=== PATIENT | female | born 2005 | race Hispanic/Latino ===

== ENCOUNTER 2024-12-22 12:15 | Outpatient (CLI) | payer OTHER, SELFPAY ==
--- OUTSIDE RECORDS SUMMARY | 2024-01-16 05:30 | XMS_ITS | Continuity of Care Document ---
Author Organization [facility] Address [address] [place] [phone] Phone Care Team Providers Care Ferry Captain Name Role Phone Unavailable Unavailable Unavailable Allergies, Adverse Reactions, Alerts Substance Reaction Status Criticality pineapple Swelling Active No Information Procedures Procedure Date 1ST COMPRE PREV MED E/M NEW PT [...] DETECTED Final For additional information, please refer tohttp://education.The Fab Shoes/ faq/Trichomonastma(T his link is being provided for [...] LDL-C. Jeevan SS et al. DOC. 2013;310(19): 0924-1757 (http://education.Phanfare.MoBank/f aq/SPH055) CHOL/HDLC RATIO 2023 11:15:5 1 2.1 (calc) [...] to test SurePath(TM) specimens have beendetermined by [employer]. The modifications havenot been cleared or approved by the FDA. This assay hasbeen validated pursuant to the CLIA regulations and isused for clinical purposes. For additional information, please refer tohttps://MAR Systems /faq/WLU002(This link is being provided for information/educatio nal [...] suspected, a test for HCV RNA(test code 51748) is suggested. For additional information please refer tohttp://education.The Fab Shoes/ faq/ETS40p8(This link is being provided for informational/educat ional purposes only.) Panel Description: Hepatitis B Surface Antigen with Reflex Confirmation Final HEPATITIS B SURFACE ANTIGEN 2023 11:15:5 1 NON-REACTI VE NON-REACTI VE Final For additional information, please refer to http://Runfaces.DescribeMe/fa q/GFT976 (This link is being provided for informational/educat [...] this purpose. For additional information please refer tohttp://education.The Fab Shoes/ faq/ICH543(This link is being provided for informational/educat ional purposes only.) The performance of this assay has not been clinicallyvalidated in patients less than 2 years old. Advance Directives Directive Yes / No Effective Date File Name No Information Encounters Encounter Description Practice Location Reason(s) For Visit Diagnoses Date Provider Providers Copied on Encounter 1ST COMPRE PREV MED E/M NEW PT 18-39 [facility], [address], [place], [place], [id number] , [place] tel:[phone] [employer] [facility] (chief complaint) Body mass index (BMI) 20.0-20.9, [...] Information Payers Payer name Insurance type Covered constitution party ID Authoriza tion(s) No Information Social History [...] to establish care. 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 Patient Care Teams Name Effective Dates (start - stop) Status Members No Information
[2024-12-22 13:32] VITALS: BP 119/66; PULSE 92
[2024-12-22 13:46] VITALS: BP 118/70; PULSE 87
[2024-12-22 14:36] LABS: OBXCEM ROM Plus Negative (Negative)
== END 2024-12-22 13:55 | disposition home or self-care (01) ==
LOC: ANHOBOP 12:36 → ANHOBPP 12:37
PROVIDERS: Visit Provider Obstetrics & Gynecology
DX: O42.90 Premature rupture of membranes, unspecified as to length of time between rupture and onset of labor, unspecified weeks of gestation (principal)
CPT/HCPCS: 59025; 84112

== ENCOUNTER 2025-01-13 14:04 | Outpatient (CLI) | payer OTHER, SELFPAY ==
--- OUTSIDE RECORDS SUMMARY | 2024-01-16 05:30 | XMS_ITS | Continuity of Care Document ---
Author Organization [facility] Address [address] [place] [phone] Phone Care Team Providers Care Environmental Test Technician Name Role Phone Unavailable Unavailable Unavailable Allergies, Adverse Reactions, Alerts Substance Reaction Status Criticality pineapple Swelling Active No Information Procedures Procedure Date COMPRE PREV MED E/M NEW PT 18-39 Jan HEMOGLOBIN; GLYCOSYLATED (A1C) URINE TEST, BY VISUAL COLOR [employer] MPARISON METHODS Results Test Name Date and Time Measure Units Reference Range Abnormal Flag Status Comments Panel Description: Hemoglobi n A1c/Hemoglobin.total in Blood Final HBA1c 2023 11:15:5 1 5.3 % 3.5-5.7 Final Panel Description: Choriogon adotropin.beta subunit ( test) [Presence] in Urine Final - Urine 2023 11:15:5 1 Negative Negative Final Panel Description: CBC (H/H, RBC, Indices, WBC, Plt) (QH) Final WHITE BLOOD CELL COUNT 2023 11:15:5 1 6.0 Thousan d/uL 3.8-10.8 Final RED BLOOD CELL COUNT 2023 11:15:5 1 4.35 Million /uL 3.80-5.10 Final HEMOGLOBIN 2023 11:15:5 1 12.8 g/dL 11.7-15.5 Final HEMATOCRIT 2023 11:15:5 1 39.3 % 35.0-45.0 Final MCV 2023 11:15:5 1 90.3 fL 80.0-100.0 Final MCH 2023 11:15:5 1 29.4 pg 27.0-33.0 Final MCHC 2023 11:15:5 1 32.6 g/dL 32.0-36.0 Final For adults, a slight decrease in the calculated MCHCvalue (in the range of 30 to 32 g/dL) is most likelynot clinically significant; however, it should beinterpreted with caution in correlation with otherred cell parameters and the patient's clinicalcondition. RDW 2023 11:15:5 1 12.5 % 11.0-15.0 Final PLATELET COUNT 2023 11:15:5 1 326 Thousan d/uL 140-400 Final MPV 2023 11:15:5 1 10.4 fL 7.5-12.5 Final Panel Description: RPR DX Re flex to Titer and Confirmatory Testing Final RPR (DX) W/REFL TITER AND CONFIRMATORY TESTING 2023 11:15:5 1 NON-REACTI VE NON-REACTI VE Final No laboratory evidence of syphilis. If recent exposureis suspected, submit a new sample in 2-4 weeks. Panel Description: Trichomon as vaginalis rRNA [Presence] in Specimen by ADDIE with probe detection Final TRICHOMONAS VAGINALIS RNA, QL TMA 2023 11:15:5 1 NOT DETECTED NOT DETECTED Final For additional information, please refer tohttp://education.Fortisphere/ faq/Trichomonastma(T his link is being provided for informational/educat ional purposes only.) Panel Description: Reflexive Urine Culture Jody l REFLEXIVE URINE CULTURE 2023 11:15:5 1 SEE NOTE Final NO CULTURE IND ICATED Panel Description: Comprehensive Metabolic Panel Final GLUCOSE 2023 11:15:5 1 86 mg/dL 65-99 Final Fasting refere nce interval UREA NITROGEN (BUN) 2023 11:15:5 1 8 mg/dL 7-25 Final CREATININE 2023 11:15:5 1 0.67 mg/dL 0.50-0.96 Final EGFR 2023 11:15:5 1 128 mL/min/ 1.73m2 > OR = 60 Final BUN/CREATININE RATIO 2023 11:15:5 1 SEE NOTE: (calc) 6-22 Final Not Reported: BUN and Creatinine are within reference range. SODIUM 2023 11:15:5 1 138 mmol/L 135-146 Final POTASSIUM 2023 11:15:5 1 4.2 mmol/L 3.5-5.3 Final CHLORIDE 2023 11:15:5 1 104 mmol/L 98-110 Final CARBON DIOXIDE 2023 11:15:5 1 27 mmol/L 20-32 Final CALCIUM 2023 11:15:5 1 9.6 mg/dL 8.6-10.2 Final PROTEIN, TOTAL 2023 11:15:5 1 7.4 g/dL 6.1-8.1 Final ALBUMIN 2023 11:15:5 1 4.6 g/dL 3.6-5.1 Final GLOBULIN 2023 11:15:5 1 2.8 g/dL (calc) 1.9-3.7 Final ALBUMIN/GLOBULI N RATIO 2023 11:15:5 1 1.6 (calc) 1.0-2.5 Final BILIRUBIN, TOTAL 2023 11:15:5 1 0.7 mg/dL 0.2-1.2 Final ALKALINE PHOSPHATASE 2023 11:15:5 1 64 U/L 31-125 Final AST 2023 11:15:5 1 16 U/L 10-30 Final ALT 2023 11:15:5 1 11 U/L 6-29 Final Panel Description: Lipid Panel (QH) Final CHOLESTEROL, TOTAL 2023 11:15:5 1 124 mg/dL <200 Final HDL CHOLESTEROL 2023 11:15:5 1 58 mg/dL > OR = 50 Final TRIGLYCERIDES 2023 11:15:5 1 59 mg/dL <150 Final LDL-CHOLESTEROL 2023 11:15:5 1 52 mg/dL (calc) Final Reference range: <100 Desirable range <100 mg/dL for primary prevention; <70 mg/dL for patients with CHD or diabetic patients with > or = 2 CHD risk factors. LDL-C is now calculated using the Jeevan-Granado calculation, which is a validated novel method providing better accuracy than the Friedewald equation in the estimation of LDL-C. Jeevan SS et al. DOC. 2013;310(19): 7832-5405 (http://education.BoxCast.Job on Corp./f aq/WAR566) CHOL/HDLC RATIO 2023 11:15:5 1 2.1 (calc) <5.0 Final NON HDL CHOLESTEROL 2023 11:15:5 1 66 mg/dL (calc) <130 Final For patients wit h diabetes plus 1 major ASCVD risk factor, treating to a non-HDL-C goal of <100 mg/dL (LDL-C of <70 mg/dL) is considered a therapeutic option. Panel Description: TSH with Reflex to Free T4 (Q H) Final TSH W/REFLEX TO FT4 2023 11:15:5 1 0.91 mIU/L Final Reference Rang e > or = 20 Years 0.40-4.50 Ranges First trimester 0.26-2.66 Second trimester 0.55-2.73 Third trimester 0.43-2.91 Panel Description: Urinalysi s, Complete, with Reflex to Culture Final COLOR 2023 11:15:5 1 YELLOW YELLOW Final APPEARANCE 2023 11:15:5 1 CLOUDY CLEAR A Final SPECIFIC GRAVITY 2023 11:15:5 1 1.016 1.001-1.03 5 Final PH 2023 11:15:5 1 7.5 5.0-8.0 Final GLUCOSE 2023 11:15:5 1 NEGATIVE NEGATIVE Final BILIRUBIN 2023 11:15:5 1 NEGATIVE NEGATIVE Final KETONES 2023 11:15:5 1 NEGATIVE NEGATIVE Final OCCULT BLOOD 2023 11:15:5 1 NEGATIVE NEGATIVE Final PROTEIN 2023 11:15:5 1 NEGATIVE NEGATIVE Final NITRITE 2023 11:15:5 1 NEGATIVE NEGATIVE Final LEUKOCYTE ESTERASE 2023 11:15:5 1 NEGATIVE NEGATIVE Final WBC 2023 11:15:5 1 0-5 /HPF < OR = 5 Final RBC 2023 11:15:5 1 NONE SEEN /HPF < OR = 2 Final SQUAMOUS EPITHELIAL CELLS 2023 11:15:5 1 10-20 /HPF < OR = 5 A Final BACTERIA 2023 11:15:5 1 MANY /HPF NONE SEEN A Final HYALINE CAST 2023 11:15:5 1 NONE SEEN /LPF NONE SEEN Final Panel Description: Chlamydia /Neisseria gonorrhoeae RNA, TMA Final CHLAMYDIA TRACHOMATIS RNA, TMA, UROGENITAL 2023 11:15:5 1 NOT DETECTED NOT DETECTED Final NEISSERIA GONORRHOEAE RNA, TMA, UROGENITAL 2023 11:15:5 1 NOT DETECTED NOT DETECTED Final COMMENT 2023 11:15:5 1 SEE NOTE Final The analytical performance characteristics of thisassay, when used to test SurePath(TM) specimens have beendetermined by [employer]_. The modifications havenot been cleared or approved by the FDA. This assay hasbeen validated pursuant to the CLIA regulations and isused for clinical purposes. For additional information, please refer tohttps://Keen Systems /faq/UNL143(This link is being provided for information/educatio nal purposes only.) Panel Description: Hepatitis C virus Ab Signal/Cutoff in Serum or Plasma by Immunoassay Final HEPATITIS C ANTIBODY 2023 11:15:5 1 NON-REACTI VE NON-REACTI VE Final HCV antibody was non-reactive. There is no laboratory evidence of HCV infection. In most cases, no further action is required. However,if recent HCV exposure is suspected, a test for HCV RNA(test code 40153) is suggested. For additional information please refer tohttp://education.Fortisphere/ faq/UWB62f8(This link is being provided for informational/educat ional purposes only.) Panel Description: Hepatitis B Surface Antigen with Reflex Confirmation Final HEPATITIS B SURFACE ANTIGEN 2023 11:15:5 1 NON-REACTI VE NON-REACTI VE Final For additional information, please refer to [email or web address].YapStone/fa q/UAY125 (This link is being provided for informational/educat ional purposes only.) Panel Description: HIV-1/2 A ntigen and Antibodies, Fourth Generation, w/ Rflxes Final HIV AG/AB, 4TH GEN 2023 11:15:5 1 NON-REACTI VE NON-REACTI VE Final HIV-1 antigen and HIV-1/HIV-2 antibodies were notdetected. There is no laboratory evidence of HIVinfection. PLEASE NOTE: This information has been disclosed toyou from records whose confidentiality may beprotected by state law. If your state requires suchprotection, then the state law prohibits you frommaking any further disclosure of the informationwithout the specific written consent of the personto whom it pertains, or as otherwise permitted by law.A general authorization for the release of medical orother information is NOT sufficient for this purpose. For additional information please refer tohttp://education.Fortisphere/ faq/JCE114(This link is being provided for informational/educat ional purposes only.) The performance of this assay has not been clinicallyvalidated in patients less than 2 years old. Advance Directives Directive Yes / No Effective Date File Name No Information Encounters Encounter Description Practice Location Reason(s) For Visit Diagnoses Date Provider Providers Copied on Encounter 1ST COMPRE PREV MED E/M NEW PT 18-39 [facility] [address], [place], [place], [id number] , [place] tel:[phone] [facility] (chief complaint) Body mass index (BMI) 20.0-20.9, adultEncounter for adult annual physical examination without abnormal findingsEncounte r for screening for cardiovascular disordersEncount er for screening for cholesterol levelEncounter for screening for diabetes mellitusEncounte r for screening for HIVEncounter for screening for oth suspected endocrine disorderEncounte r for STD screeningEncount er for test, result unknown No Information Family History Family Member Type Diagnosis Age At Onset No Information Payers Payer name Insurance type Covered libertarian ID Authoriza tion(s) No Information Social History Type Description Quantity Date Captured Comments Alcohol Use Details No Caffeine Use Details coffee and soda Tobacco Use Status Current non-smoker Smoking Status Never smoker Non-Smoking Tobacco Use Details : No Details Available : No Details Available Sex Female Sexual Orientation Straight or heterosexual Gender Identity Female Vital Signs Date / Time: Height Weight BMI Pulse Rate Blood Pressure Temperature Respiratory Rate Body Surface Area Head Circumference Head Circ. Percentile Wt./Nasir. Percentile BMI percentile Pulse Ox Inhaled Ox 10:48 AM 65.00 in 55.792 kg (123.00 lbs) 20.4 7 kg/m eter (2) 72 /min 106/67 mm[Hg] 98.90 F 19 /min 1.60 meter(2) 100 % Chief Complaint And Reason For Visit From encounter dated '01/16/2024 10:30'. [facility] (chief complaint). Description: New Patient Visit to establish care. 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 USPFTF: age 18Pap smear: UTD Dental exam, every year: dueVision exam, every year: dueLast a1c: dueLast FLP: dueHepatitis C screen 18 to 79 years, one time: due Reason For Referral Reason For Referral No Information Plan Of Treatment Date Type Action Status Nutrition Recommendation Nutrition therap y completed History Of Present Illness Encounter Date Complaint History Of Prese nt Illness Est Care New Patient Visi t to establish care. Visit conducted with video Afghan InterpreterPMHx: NoneMeds: noneAllergies: pineapple cause throat to swell and face to swellPSxHx: noneOB/PAPER BALER Hx: WWE w/ pap 4: months ago in [place], [place]; report normalG-0 PLMP: two months ago due to BC injectionMOC: taking Depo injection; Last injection 3 months ago; states has an appt next month for injectionSTD hx: chlamydiaSA: +1 male Fam Hx: noneSocial: live with partner; not workingTobacco/ETOH/Illicit: noneROS: denies CP, SOB, peripheral edema, rash, anxiety, depression, nausea, abdominal pain, constipation, diarrhea, rhinorrhea, discharge, dysuria. USPFTF: age 18Pap smear: UTD Dental exam, every year: dueVision exam, every year: dueLast a1c: dueLast FLP: dueHepatitis C screen 18 to 79 years, one time: due Functional Status Date Functional Assessmen t Pain Score 0/10 Instructions Date Instruction Additional Infor mation Labs updated as jose cated Yearly eye exam is recommendedYearly Dental exam is recommendedEat a balanced diet of fruits/vegetables and lean proteinsGet in at least 30-40 mins of physical activity 4-5 times a weekFollow up annually for wellness visit Related to Encounter for adult annual physical examination without abnormal findings Giving encouragement to exercise Related to Body mass index [BMI] 20.0-20.9, adult Assessments Type Assessment Date assessment Body mass index [BMI] 20.0-20.9, adult assessment Encounter for adult annual physical examination without abnormal findings assessment Encounter for screening for card iovascular disorders assessment Encounter for screening for chol esterol level assessment Encounter for screening for diab etes mellitus assessment Encounter for screening for HIV assessment Encounter for screening for oth suspected endocrine disorder assessment Encounter for STD screening assessment Encounter for test, re sult unknown Mental Status Date Cognitive Assessment Orientation - [place] ed to time, place, person, situation. Patient Care Teams Name Effective Dates (start - stop) Status Members No Information
--- OUTSIDE RECORDS SUMMARY | 2025-01-13 14:22 | XMS_ITS | Data Portability ---
Author Organization [facility] [place] Address [address] [place] [address] Assessment Encounter Date Assessment Date Assessment LastModified by Organization Details LastModified Time 12/07/2024 12/07/2024 Patient is ___weeks . Discussed plan. Not available 12/07/2024 11:48:56 12/22/2024 12/22/2024 Patient is ___weeks . Discussed plan. [email or web address] Not available 12/22/2024 12:52:43 12/28/2024 12/28/2024 Patient is ___weeks . Discussed plan. [email or web address] Not available 12/28/2024 15:26:17 01/11/2025 01/11/2025 Patient is ___weeks . Discussed plan. Not available 01/11/2025 11:39:16 Plan of Treatment Reminders Order Date Submit Date Provider Last Modified By Organization Details Last Modified Time Details Appointments OB ROUTINE 2024 10:45A Jeana UGALDE MD Not available Not available Not available OB ROUTINE 2024 01:00P Jeana UGALDE MD Not available Not available Not available OB ROUTINE 2024 11:00A Jeana UGALDE MD Not available Not available Not available Lab None recorded . Referral None recorded . Procedures None recorded . Surgeries None recorded . Imaging US, obstetri c, follow-u p 2024 025 [email or web address] [address], [address], [place], [address], 12/22/2024 19:42:30 Medication Orders None recorded . Patient TargetsNo targets recorded. Patient InstructionsNo instructions recorded. Reason for Referral None Reported. Results Created Date Observation Date Name Description Value Unit Range Abnormal Flag Note LastModifiedBy Organization Detail LastModifiedTime 11/21/1911/20/2024 HIV 1/2 ANTIG EN/AN TIBOD Y, REFLE X CONFI RMATI ON HIV antigen/anti body Nonrea ctive nonrea ctive HIV-1 antig en and HIV-1 /HIV- 2 antib odies were not detec frank. No labor atory evide nce of HIV infec tion. Not Available [facility] (Lab) [address], [place], [address], 11/21/2024 12:24:01 11/21/19 25 11/20/2024 GTT - GESTA ZULMA L LING Toro, ACOG OB glucose, 1 hour screen 92 mg/dL 70-135 Not Available [facility] (Lab) [address] [place], [address], 11/21/2024 12:24:02 11/21/19 25 11/20/2024 HEMOG LOBIN (HGB) HGB 11.2 g/dL (based on docume nted legal sex) 11.6-1 5.4 low Not Available [facility] (Lab) [address] [place], [address], 11/21/2024 12:24:02 11/21/19 25 11/20/2024 HEMAT OCRIT (HCT) HCT 34.0 % (based on docume nted legal sex) 34.0-4 5.0 Not Available [facility] (Lab) [address] [place], [address], 11/21/2024 12:24:02 11/21/19 25 11/20/2024 RPR SCREE N, REFLE X TITER /CONF IRMAT ION RPR qualitative Nonrea ctive nonrea ctive Not Available [facility] (Lab) [address] [place], [address], 11/21/2024 12:24:02 12/08/19 25 12/07/2024 WOMEN 'S HEALT H SWAB, ADDIE valentino species, tma Negati ve negati ve Not Available [facility] (Lab) [address] [place], [address], 12/08/2024 17:25:28 12/08/19 25 12/07/2024 WOMEN 'S HEALT H SWAB, ADDIE valentino glabrata, tma Negati ve negati ve Not Available [facility] (Lab) [address] [place], [address], 12/08/2024 17:25:28 12/08/19 25 12/07/2024 WOMEN 'S HEALT H SWAB, ADDIE trichomonas vaginalis, tma Negati ve negati ve This assay tests for and diffe renti ates laywe en Windy da glabr chiki, the Windy da speci es group (C. albic ans, C. tropi calis , C. parap jay jay is, C. dubli ni is), and Trich omona s vagin yayo by Trans cript ion-M ediat ed Ampli ficat ion (TMA) . Not Available [facility] (Lab) [address] [place], [address], 12/08/2024 17:25:28 12/08/19 25 12/07/2024 WOMEN 'S HEALT H SWAB, ADDIE bacterial vaginosis (bv), tma Negati ve negati ve This test detec ts ribos omal RNA from bacte angelica assoc iated with bacte rial vagin osis (BV), inclu ding Lacto bacil josh (L. gasse ri, L. crisp atus and L. jense ian), Gardn erell a vagin yayo, and Atopo bium vagin ae by Trans cript ion-M ediat ed Ampli ficat ion (TMA) . A singl e quali tativ e britt t is repor frank based on instr ument softw are to deter mine BV posit vick or negat vick statu s. Not Available [facility] (Lab) [address], [place], [address], 12/08/2024 17:25:28 11/19/19 25 11/18/2024 US, obste tric, follo w-up No observ ation record ed. [email or web address], [place], [address], 11/24/2024 14:32:31 11/19/19 25 11/18/2024 US, obste tric, limit ed No observ ation record ed. [email or web address] [place] [address], [place], [address], 11/18/2024 12:37:19 11/19/1911/18/2024 US, obste tric, trans vagin al No observ ation record ed. [email or web address] [place] [address], [place], [address], 11/18/2024 12:37:29 12/08/1911/23/2024 non-s tress test No observ ation record ed. [facility] [address], [place], [address], 12/09/2024 12:12:17 12/23/1912/22/2024 US, obste tric, follo w-up No observ ation record ed. [email or web address] [place] [address], [place], [address], 12/22/2024 12:46:06 12/23/1912/22/2024 US, obste tric, follo w-up No observ ation record ed. [email or web address], [place], [address], 12/25/2024 11:22:50 01/05/2001/04/2025 non-s tress test No observ ation record ed. [facility] [address], [place], [address], 01/07/2025 13:00:16 Result Notes None recorded. Problems Name Problem SNOMED Code Status Onset Date Resolution Date Notes Provider Name and Address Organization Details Recorded Time 55879746 Active 2024 Jennifer Morillo null, [facility] 15:19:55 Pain in female pelvis 614791715 Active 2024 Normal cervical length, normal visual and digital exam, Idris Ugalde MD [address], [place], [address], [facility] 15:23:10 Vaginal discharge 545907712 Active 2024 Idris Ugalde MD [address], [place], [address], [facility] 13:53:29 Problem Notes None recorded. Medical Equipment None Reported. Allergies No known drug allergies Medications Name Sig Start Date Stop Date Status Note LastModified by Organization Details LastModified Time ondansetron 8 mg disintegrat ing tablet Place 1 tablet twice a day by transling ual route. 11/02 completed Not Available Not Available Not Available active Not Available Not Avai lable Not Available Vitals Date Recorded Body height Body mass index (BMI) Body weight Systolic And Diastolic Provider Name and Address Organization Details Last Updated DateTime 12/07/2024 165.1 cm 26.1 kg/m2 37744 g 121/78 mm[Hg] Jennifer Morillo [facility] 12/07/2024 11:49:33 Date Recorded Body height Body mass index (BMI) Body weight Systolic And Diastolic Provider Name and Address Organization Details Last Updated DateTime 12/22/2024 165.1 cm 26.5 kg/m2 94315.19 g 125/72 mm[Hg] [facility] 12/22/2024 12:55:15 Date Recorded Body height Body mass index (BMI) Body weight Systolic And Diastolic Provider Name and Address Organization Details Last Updated DateTime 12/28/2024 165.1 cm 27 kg/m2 82061.96 g 121/76 mm[Hg] [facility] 12/28/2024 15:27:06 Date Recorded Body weight Systolic And Diastolic Provider Name and Address Organization Details Last Updated DateTime 01/11/2025 80860.41872 g 132/79 mm[Hg] Jennifer Morillo [facility] 01/11/2025 11:39:45 Social History Question Answer Notes LastModified by [employer] Details LastModified Time Tobacco Smoking Status Never Smoker [facility] 06/25/2024 15:08:15 If You Are , What Was Your Level Of Alcohol Consumption Prior To ? None Information not available 06/25/2024 Are You Blind Or Do You Have Difficulty Seeing? No Information not available 06/25/2024 What Is Your Level Of Caffeine Consumption? Occasional Information not available 06/25/2024 Are You Deaf Or Do You Have Serious Difficulty Hearing? No Information not available 06/25/2024 Has Tobacco Cessation Counseling Been Provided? No Information not available 06/25/2024 Do You Have Difficulty Walking Or Climbing Stairs? No Information not available 06/25/2024 Sex: Unknown Functional Status Question Answer Note LastModified by [employer] ion Details LastModified Time Do you use any illicit or recreational drugs? No Information not available 06/25/2024 Do you or have you ever used any other forms of tobacco or nicotine? No Information not available 06/25/2024 What is your level of alcohol consumption? None Information not available 06/25/2024 Are you currently employed? No Information not available 06/25/2024 Are you able to walk independently without assistance or assistive devices? YESWOREST Information not available 06/25/2024 Are you able to care for yourself independently? Yes Information not available 06/25/2024 Do you have difficulty dressing, bathing, grooming, or toileting? No Information not available 06/25/2024 Mental Status None recorded. Family History Relationship Description Onset Age of this Age Resolved Age Notes LastModified by Organization Details LastModified Time Father Hypertensive disorder Not available 2024 15:06:18 Medical History Condition Response History of STI Y Gynecological History Statement/Question Response Are cycles usually normal Y Date of LMP 04/27/2024 Sexually Active? Y Menses Monthly Y Was last menstrual period normal Y STIs/STDs Y HPV Vaccine N Date of Last Pap Smear Sexual Problems? N Current Control Method LMP Definite Obstetrics History GPAL:G 2 P 0 0 1 0 Type Value Spontaneous 1 Living 0 Total 2 Past Encounters Encounter ID Performer Location Encounter Start Date Encounter Closed Date Diagnosis/Indication Diagnosis SNOMED-CT Code Diagnosis ICD10 Code Diagnosis IMO Codes Diagnosis Note [id number] Idris Ugalde MD [place] [address] [address] 06/25/2024 13:42:06 06/25/2024 14:19:07 screening 744259567 Z36.87 Z3A.01 [id number] Idris Ugalde MD [place] [address] [address] 06/25/2024 14:00:47 06/29/2024 16:23:13 Amenorrhea 93345545 N91.2 this patient is a 18-year-ol d female who presents for amenorrhea . She is a positive test. Ultrasound revealed a 1st trimester gestation. Patient has no complaints . We talked about early care. Talked about genetic screening. We talked about her ultrasound results. We talked about the 12 week ultrasound that has genetic screening components . She was given recommenda tions on exercise, diet, over-the-c ounter medication s. We reviewed her obstetric history. We reviewed her medical history. We reviewed her social history. She will begin routine care at her next visit. [id number] MD Chito Rosen [address],[place] [address] 08/06/2024 13:41:56 08/07/2024 15:20:12 screening 858258863 Z36.82 Z3A.13 [id number] Idris Ugalde MD [place] [address],[place] [address] 08/06/2024 13:44:36 08/07/2024 08:31:26 Nausea 159925573 R11.0 [id number] Second tri mester 29547044 Z34.02 [id number] Candace Wade, [facility] [address],[place] [address] 08/28/2024 16:00:54 08/29/2024 11:20:10 [id number] Idris Ugalde MD [place] [address],[place] [address] 08/28/2024 16:02:21 08/29/2024 11:21:04 Disorder of amniotic cavity AND/OR membrane 34011493 O41.92X0 Z3A.16 [id number] LORENA LORENZ MD [place] [address],[place] [address] 09/29/2024 14:36:12 09/29/2024 15:41:47 screening for malformation 876939871 Z36.3 Z3A.20 6812972542 [id number] LORENA LORENZ MD [place] [address],[place] [address] 09/29/2024 14:36:27 09/30/2024 07:46:35 [id number] LORENA LORENZ MD [place] [address],[place] [address] 10/02/2024 11:35:39 10/02/2024 12:47:30 Large for gestation age fetus 963587595 O36.60X0 96143574 - EFW 94% at 20 weeks- repeat in 4 weeks- GCT at 24 weeks Gestation period, 21 weeks 21405684 Z3A.21 8424158 - anatomy wnl- continue PNV Requires l tucker interpretation service to support health literacy 1310488999 Z55.6 [id number] MD Chito Rosen [address],[place] [address] 11/02/2024 14:25:48 11/02/2024 15:09:00 Excessive growth affecting management of mother 31016565 O36.62X0 Z3A.25 922107 [id number] MD Chito Rosen [address],[place] [address] 11/02/2024 14:26:15 11/02/2024 23:44:52 care status 180689396 Z34.82 [id number] MD Chito Rosen [address],[place] [address] 11/18/2024 10:19:26 11/18/2024 11:01:45 Pain in female pelvis 166601599 O26.899 R10.2 Z03.75 Z3A.27 [id number] MD Chito Rosen [address],[place] [address] 11/19/2024 14:24:19 11/19/2024 15:26:02 care status 614712551 Z34.83 [id number] MD Chito Rosen [address],[place] [address] 12/07/2024 11:41:42 12/07/2024 14:03:41 care status 826052427 Z34.83 [id number] MD Chito Rosen [address],[place] [address] 12/22/2024 11:58:23 12/22/2024 13:07:38 Excessive growth affecting management of mother 00588825 O36.63X0 Z3A.32 [id number] MD Chito Rosen [address],[place] [address] 12/22/2024 11:58:57 12/24/2024 21:47:35 [id number] Idris Ugalde MD [place] [address],[place] [address] 12/28/2024 14:59:15 12/28/2024 15:56:26 care status 466184575 Z34.83 [id number] Idris Ugalde MD [place] [address],[place] [address] 01/11/2025 10:56:56 01/11/2025 12:14:41 care status 433151875 Z34.83 [id number] Health Concerns Section Related Observation LastModified by Organization Detai ls LastModified Time None Recorded Concern Status LastModified by Organization Details LastModified Time None Recorded Advance Directives Directive None Recorded Payers Insurance Date Sequence Insurance Name Policy Number Policy Jean-Baptiste Covered Member ID Jean-Baptiste Member ID Guarantor Name 08/28/2024 1 [place] Any Marylu Rojas Amelie [id number] Any Marylu Rojas Amelie 01/07/2025 1 [facility] - DOS ON OR AFTER 20 (MEDICAID REPLACEMENT - HMO) Any P Rojas Amelie [id number] Any Marylu Rojas Amelie 07/23/2024 1 *SELF PAY* An y Marylu Rojas Amelie Notes Date Note Type Note Provider Name and Address Organization Details Recorded Time 12/07/2024 text/html Generic HPI TemplateReported by Patient Idris Ugalde MD [address], [place], [address], [facility] 12/07/2024 13:58:00 12/22/2024 text/html Generic HPI TemplateReported by Patient Idris Ugalde MD [address], [place], [address], [facility] 12/24/2024 21:47:34 12/28/2024 text/html Generic HPI TemplateReported by Patient Idris Ugalde MD [address], [place], [address], [facility] 12/28/2024 15:47:33 01/11/2025 text/html Generic HPI TemplateReported by Patient Idris Ugalde MD [address], [place], [address], [facility] 01/11/2025 12:07:23 OBGyn Episode Ob Episode Information Episode Created Date Number of Fetuses Patient Bloodtype Patient rh Status Prepregnancy Weight lbs Domestic Partner Domestic Partner Phone Father Name Sandfill Operator Status 08/07/19 25 1 O Positive Henry OPEN Fetus Data First Name Last Name Admitted to NICU Weight (g) Sex Living Outcome Pediatric Complications Fetus ID Race Codes Race Delivery Type [id number] Problems Problem Notes Synechaie Problem Name Start Date End Date Resolution Snomed Code Not e Pain in female pelvis 11/19/2024 3876200 03 Normal cervical length, normal visual and digital exam, Vaginal discharge 12/07/2024 [id number] Mauro Calculation Initial Mauro Date Initial Exam Date Initial Exam Provider Initial Ultrasound Date Last Menstrual Period Date Ultra Sound Weeks Gestation 08/06/2024 06/25/2024 05/07/2024 7 Eighteen To Twenty Week Mauro Update Ultra Sound Date Fundal Height At Umbil Quickening Date Ultra Sound Latest Weeks Gestation Final Mauro Confirmed By Final Mauro Confirmed Date Final Mauro Date Ultra Sound Latest Days Gestation 0 [email or web address] 08/06/2024 02/12/20 25 0 Pre-jose Flowsheet Flowsheet Date 08/06/2024 Reynolds Score Blood Edema Fundus Height Fundus Units Glucose Ketones Leukocytes Nitrite Labor Signs Protein Cervic Dilation Cervic Effacement Cervic Station Type Weight in lbs Pre/Post Dialysis Refused BP Diastolic BP Location Tested BP Systolic BP Type Fetus Heart Rate Present Fetus Movement Comments Flowsheet Date 08/06/2024 Reynolds Score Blood Edema Fundus Height Fundus Units Glucose Ketones Leukocytes Nitrite Labor Signs Protein Cervic Dilation Cervic Effacement Cervic Station 12 cm Type Weight in lbs Pre/Post Dialysis Refused Weight 125.212089219757 BP Diastolic BP Location Tested BP Systolic BP Type 68 L arm 112 sitting Fetus Heart Rate Present A 156 Fetus Movement Comments this patient is a -year-ol d parous female at 12 weeks' gestation who presents for initial care. She has a history of term vaginal births. Her medical, surgical, obstetric history is unremarkable. She is vaccinated. She was given precautions recommendations for . We talked about vaccines in . Talked about care in detail. She is having genetic testing. She had a normal 12 week ultrasound. To begin routine care. Flowsheet Date 08/28/2024 Reynolds Score Blood Edema Fundus Height Fundus Units Glucose Ketones Leukocytes Nitrite Labor Signs Protein Cervic Dilation Cervic Effacement Cervic Station Type Weight in lbs Pre/Post Dialysis Refused BP Diastolic BP Location Tested BP Systolic BP Type Fetus Heart Rate Present Fetus Movement Comments +FM, doing well, lizzy cleve tobias harbour master, denies complaints, fu 4 week anatomy scan, us today! Flowsheet Date 08/28/2024 Reynolds Score Blood Edema Fundus Height Fundus Units Glucose Ketones Leukocytes Nitrite Labor Signs Protein Cervic Dilation Cervic Effacement Cervic Station Type Weight in lbs Pre/Post Dialysis Refused BP Diastolic BP Location Tested BP Systolic BP Type Fetus Heart Rate Present Fetus Movement Comments Flowsheet Date 09/29/2024 Reynolds Score Blood Edema Fundus Height Fundus Units Glucose Ketones Leukocytes Nitrite Labor Signs Protein Cervic Dilation Cervic Effacement Cervic Station Type Weight in lbs Pre/Post Dialysis Refused BP Diastolic BP Location Tested BP Systolic BP Type Fetus Heart Rate Present Fetus Movement Comments Flowsheet Date 09/29/2024 Reynolds Score Blood Edema Fundus Height Fundus Units Glucose Ketones Leukocytes Nitrite Labor Signs Protein Cervic Dilation Cervic Effacement Cervic Station Type Weight in lbs Pre/Post Dialysis Refused BP Diastolic BP Location Tested BP Systolic BP Type Fetus Heart Rate Present Fetus Movement Comments Flowsheet Date 10/02/2024 Reynolds Score Blood Edema Fundus Height Fundus Units Glucose Ketones Leukocytes Nitrite Labor Signs Protein Cervic Dilation Cervic Effacement Cervic Station Type Weight in lbs Pre/Post Dialysis Refused 139.133031257974 BP Diastolic BP Location Tested BP Systolic BP Type 71 L arm 113 sitting Fetus Heart Rate Present A 145 Fetus Movement A Yes Comments Good movement. No cram ping or bleeding. No issues since last visit. Anatomy complete and normal aside from suspected LGA fetus with EFW 95%. Normal fluid. Will plan for GCT and labs at next visit due to excessive growth. Telephone charger operator used for entire encounter. Flowsheet Date 11/02/2024 Reynolds Score Blood Edema Fundus Height Fundus Units Glucose Ketones Leukocytes Nitrite Labor Signs Protein Cervic Dilation Cervic Effacement Cervic Station Type Weight in lbs Pre/Post Dialysis Refused BP Diastolic BP Location Tested BP Systolic BP Type Fetus Heart Rate Present Fetus Movement Comments Flowsheet Date 11/02/2024 Reynolds Score Blood Edema Fundus Height Fundus Units Glucose Ketones Leukocytes Nitrite Labor Signs Protein Cervic Dilation Cervic Effacement Cervic Station Type Weight in lbs Pre/Post Dialysis Refused 147.810636024617 BP Diastolic BP Location Tested BP Systolic BP Type 68 L arm 115 sitting Fetus Heart Rate Present A 145 Fetus Movement A Yes Comments no complaints, no problems, routine care, no contractions, no vaginal bleeding, no loss of fluid, no cramping Flowsheet Date 11/18/2024 Reynolds Score Blood Edema Fundus Height Fundus Units Glucose Ketones Leukocytes Nitrite Labor Signs Protein Cervic Dilation Cervic Effacement Cervic Station Type Weight in lbs Pre/Post Dialysis Refused BP Diastolic BP Location Tested BP Systolic BP Type Fetus Heart Rate Present Fetus Movement Comments Flowsheet Date 11/19/2024 Reynolds Score Blood Edema Fundus Height Fundus Units Glucose Ketones Leukocytes Nitrite Labor Signs Protein Cervic Dilation Cervic Effacement Cervic Station Type Weight in lbs Pre/Post Dialysis Refused 151.453568373581 BP Diastolic BP Location Tested BP Systolic BP Type 70 L arm 121 sitting Fetus Heart Rate Present A 132 Fetus Movement A Yes Comments Patient reports pressure, re cent cervical length was normal, normal visual and digital exam, good cervical length. 3 cm. Given precautions Flowsheet Date 12/07/2024 Reynolds Score Blood Edema Fundus Height Fundus Units Glucose Ketones Leukocytes Nitrite Labor Signs Protein Cervic Dilation Cervic Effacement Cervic Station Type Weight in lbs Pre/Post Dialysis Refused Weight 157.111407881865 BP Diastolic BP Location Tested BP Systolic BP Type 78 L arm 121 sitting Fetus Heart Rate Present A 150 Present Fetus Movement A Yes Comments no complaints, no problems, routine care, no contractions, no vaginal bleeding, no loss of fluid, no cramping reports discharge that is non odorous and nonpruritic. Vagina was examined. Cervix is closed. Flowsheet Date 12/22/2024 Reynolds Score Blood Edema Fundus Height Fundus Units Glucose Ketones Leukocytes Nitrite Labor Signs Protein Cervic Dilation Cervic Effacement Cervic Station Type Weight in lbs Pre/Post Dialysis Refused BP Diastolic BP Location Tested BP Systolic BP Type Fetus Heart Rate Present Fetus Movement Comments Flowsheet Date 12/22/2024 Reynolds Score Blood Edema Fundus Height Fundus Units Glucose Ketones Leukocytes Nitrite Labor Signs Protein Cervic Dilation Cervic Effacement Cervic Station Type Weight in lbs Pre/Post Dialysis Refused Weight 159.557256183551 BP Diastolic BP Location Tested BP Systolic BP Type 72 L arm 125 sitting Fetus Heart Rate Present Fetus Movement A Yes Comments Flowsheet Date 12/28/2024 Reynolds Score Blood Edema Fundus Height Fundus Units Glucose Ketones Leukocytes Nitrite Labor Signs Protein Cervic Dilation Cervic Effacement Cervic Station Type Weight in lbs Pre/Post Dialysis Refused Weight 162.156822863231 BP Diastolic BP Location Tested BP Systolic BP Type 76 L arm 121 sitting Fetus Heart Rate Present A 152 Fetus Movement A Yes Comments no complaints, no problems, routine care, no contractions, no vaginal bleeding, no loss of fluid, no cramping Flowsheet Date 01/11/2025 Reynolds Score Blood Edema Fundus Height Fundus Units Glucose Ketones Leukocytes Nitrite Labor Signs Protein Cervic Dilation Cervic Effacement Cervic Station Type Weight in lbs Pre/Post Dialysis Refused 168.582475748593 BP Diastolic BP Location Tested BP Systolic BP Type 79 L arm 132 sitting Fetus Heart Rate Present A 140 Present Fetus Movement A Yes Comments no complaints, no problems, routine care, no contractions, no vaginal bleeding, no loss of fluid, no cramping Menstrual History Last Menstrual Date Menses Monthly On Bcp Conception Prior Menses Frequency Hcg Plus Date Menarche Onset Age 0105/07/2024 true Delivery Information Delivery Date Delivery Type Labor Anesthesia Weeks Gestation Incision Type Labor Labor Length Hrs Delivered By Post Complications Tubal Sterilization Discharge Date Comments Discharge Information Feeding Method Contraceptive Method Maternal HG B and HCT Levels Ob Episode Information Episode Created Date Number of Fetuses Patient Bloodtype Patient rh Status Prepregnancy Weight lbs Domestic Partner Domestic Partner Phone Father Name Sandfill Operator Status 06/26/19 25 1 CLOSED Fetus Data First Name Last Name Admitted to NICU Weight (g) Sex Living Outcome Pediatric Complications Fetus ID Race Codes Race Delivery Type , Spontane ous [id number] Mauro Calculation Initial Mauro Date Initial Exam Date Initial Exam Provider Initial Ultrasound Date Last Menstrual Period Date Ultra Sound Weeks Gestation 0 Eighteen To Twenty Week Mauro Update Ultra Sound Date Fundal Height At Umbil Quickening Date Ultra Sound Latest Weeks Gestation Final Mauro Confirmed By Final Mauro Confirmed Date Final Mauro Date Ultra Sound Latest Days Gestation 0 0 Menstrual History Last Menstrual Date Menses Monthly On Bcp Conception Prior Menses Frequency Hcg Plus Date Menarche Onset Age Delivery Information Delivery Date Delivery Type Labor Anesthesia Weeks Gestation Incision Type Labor Labor Length Hrs Delivered By Post Complications Tubal Sterilization Discharge Date Comments 4 Discharge Information Feeding Method Contraceptive Method Maternal HG B and HCT Levels
--- OUTSIDE RECORDS SUMMARY | 2025-01-13 14:22 | XMS_ITS | Data Portability ---
[facility] Address [address] [place] [address] Assessment No assessment recorded. Plan of Treatment Reminders Order Date Submit Date Provider Last Modified By Organization Details Last Modified Time Details Appointments None recorded. Lab None recorded. Referral None recorded. Procedures None recorded. Surgeries None recorded. Imaging None recorded. Medication Orders 28 mg iron-800 mcg tablet 2024 025 [id number], [address], [place], [phone], 12:47:45 Patient TargetsNo targets recorded. Patient Instructions Encounter Date Encounter Id Patient Instructions Last Modified By Organization Details Last Modified Time 06/02/2024 [id number] amenorrea secundaria: instrucciones de cuidado - [secondary amenorrhea: care instructions] [email or web address] Not available 06/02/2024 12:47:00 Reason for Referral None Reported. Problems Name Problem SNOMED Code Status Onset Date Resolution Date Notes Provider Name and Address Organization Details Recorded Time Amenorrhea 86682094 Active 025 MARLYN Roepr [place] [facility] 12:26:00 Problem Notes None recorded. Medical Equipment None Reported. Allergies Allergen ID Allergen Name Allergen Category Reaction Reaction Severity Criticality Documentation Date Start Date Code Code System Note Provider Name and Address Organization Details Recorded Time [id number] pineapple extract food respirato ry distress Not available Not available 06/02/2024 97880 74 RxNorm rash MARLYN Roper [facility] 12:16:30 No known drug allergies Medications Name Sig Start Date Stop Date Status Note LastModified by Organization Details LastModified Time 28 mg iron-800 mcg tablet Take 1 tablet every day by oral route for 30 days. 025 active Not Available Not Available Not Avai lable Vitals Date Recorded Body weight Body temperature Body mass index (BMI) [Percentile] Per age and sex Body mass index (BMI) Body height Heart rate Systolic And Diastolic Provider Name and Address Organization Details Last Updated DateTime 5 84014.0 8 g 99 [degF] 35 % 20.6 kg/m2 162.56 cm 96 /min 121/68 mm[Hg] Rachelle Mancia MA [facility] 12:20:23 Social History Question Answer Notes LastModified by Organizat ion Details LastModified Time Tobacco Smoking Status Never Smoker Rachelle Mancia MA null, [facility] 06/02/2024 12:16:45 What Was The Date Of Your Most Recent Tobacco Screening? 06/02/2024 Information not available 06/02/2024 Sex: Unknown Functional Status Question Answer Note LastModified by Organization D etails LastModified Time Do you or have you ever used any other forms of tobacco or nicotine? No Information not available 06/02/2024 Mental Status None recorded. Family History Nothing Reported. Medical History No medical history recorded. Gynecological HistoryNo gynecological history recorded. Obstetrics History GPAL:G 0 P 0 0 0 0 Past Encounters Encounter ID Performer Location Encounter Start Date Encounter Closed Date Diagnosis/Indication Diagnosis SNOMED-CT Code Diagnosis ICD10 Code Diagnosis IMO Codes Diagnosis Note [id number] MD Dara Luz [facility] ([facility] [address]) [address] [place] [id number] 06/02/2024 12:03:10 06/04/2024 08:09:54 Amenorrhea 33049872 N91.2 Urine preg lorne test positive 535444533 Z32.01 RADHA: 02/01/2025 LMP: 04/27/24Inf ormation provided regarding OBGYN options, list of okay OTC medication s to take, Healthy Start program, etc.Please report to ED if you experience chest pain, shortness of breath, dyspnea on exertion, vaginal bleeding and/or abdominal pain.Baby related samples given to pt in a goodie bag Health Concerns Section Related Observation LastModified by Organization Detai ls LastModified Time None Recorded Concern Status LastModified by Organization Details LastModified Time None Recorded Advance Directives Directive None Recorded Payers Insurance Date Sequence Insurance Name Policy Number Policy Jean-Baptiste Covered Member ID Jean-Baptiste Member ID Guarantor Name 07/03/2024 SLIDING FEE SCHEDULE - DISCOUNT Any Marylu Kinsey 06/02/2024 1 *SELF PAY* An y Marylu Bob Kinsey Notes Date Note Type Note Provider Name and Address Organization Details Recorded Time 06/02/2024 text/html ROS as noted in the HPI Patient presents to the clinic requesting confirmation following a positive home test on May 26, 2024. She reports her last menstrual period as 04/27/24. Pt denies nausea, vomiting, fever, chills, rash, cough, chest pain, shortness of breath, dyspnea on exertion, vaginal bleeding, abdominal pain, diarrhea, constipation and dysuria. DARRYL Bull Attn: [employer]ing[address] [place], [address], [place] [facility] 06/02/2024 13:14:50 OBGyn Episode No OBEpisode recorded.
[2025-01-13 14:51] VITALS: BP 122/77; PULSE 90
[2025-01-13 14:57] VITALS: BMI 27.6
[2025-01-13 15:01] VITALS: BP 123/79; PULSE 89
[2025-01-13 15:07] LABS: Hematocrit 35.0 % (37.0-47.0); Hemoglobin 11.4 g/dL (12.0-15.0); Immature Granulocyte Percent A 0.6 % (0-0.5); Lymphocytes Absolute Auto 1.80 K/mm3 (0.9-3.2); Mean Corpuscular HGB Conc 32.6 g/dl (32-36); Mean Corpuscular Hemoglobin 27.7 pg (26-34); Mean Corpuscular Volume 85.2 fl (80-100); Nucleated Red Blood Cells Absolute Auto 0.000 K/mm3 (0.0-0.012); Nucleated Red Blood Cells Perc 0.0 % (0.0-0.2); Platelet Count Result 304 k/mm3 (150-375); Red Blood Count 4.11 M/mm3 (4.2-5.4); White Blood Count 11.1 K/mm3 (4.5-10.0)
[2025-01-13 15:20] LABS: Add Urine Microscopic? YES; Appearance Urine Cloudy (Clear); Glucose Urine UA Negative (Negative); Leukocyte Esterase Ur 3+ LEU/UL (Negative); Need Manual Microscopic Reviewed; Nitrate Urine Negative (Negative); Specific Grav Ur 1.005 (1.001-1.035)
[2025-01-13 15:24] LABS: Total Protein Urine Random 12 mg/dL; Ur Ttl Prot Creatinine Ratio 0.61 mg/mg (0-0.20)
[2025-01-13 15:31] VITALS: BP 124/66; PULSE 81
[2025-01-13 15:35] LABS: Alanine Aminotransferase 21 U/L (6-35); Albumin Level 3.9 g/dL (3.5-5.1); Alkaline Phosphatase 214 U/L (38-126); Anion Gap 9 mmol/L (4-12); Aspartate Amino Transferase 30 U/L (14-36); Bilirubin,Total 0.3 mg/dL (0.2-1.3); Blood Urea Nitrogen 9 mg/dL (7-17); Calcium 9.4 mg/dL (8.4-10.2); Carbon Dioxide 19 mmol/L (22-30); Chloride 106 mmol/L (98-107); Estimated CRCL calculation 145 ml/min; Estimated Glomerular Filt Rate > 60; Glucose 87 mg/dL (65-110); Potassium 4.1 mmol/L (3.4-5.0); Sodium 134 mmol/L (137-145); Total Protein 7.5 g/dL (6.3-8.2); Uric Acid 4.9 mg/dL (2.5-7.5)
[2025-01-13 15:46] VITALS: BP 122/66; PULSE 83
[2025-01-13] MEDS: ACETAMINOPHEN 500 MG TABLET 1000 MG PO (16:15)
== END 2025-01-13 16:30 | disposition home or self-care (01) ==
LOC: ANHOBOP 14:16 → ANHOBPP 14:18
PROVIDERS: Visit Provider Obstetrics & Gynecology
DX: O13.9 Gestational [pregnancy-induced] hypertension without significant proteinuria, unspecified trimester (principal); Z3A.00 Weeks of gestation of pregnancy not specified
CPT/HCPCS: 36415; 59025; 80053; 81001; 82570; 84156; 84550; 85025; 87086; 99199; A9270